=== PATIENT | female | born 1985 | race Two or more races ===

== ENCOUNTER 2019-07-07 09:28 | Inpatient (IN) | payer OTHER ==
[~2019-07-07] VITALS: Ht 160 cm; Wt 94.8 kg
[2019-07-07] MEDS ORDERED: PRENATAL TABLE1 EACH PO (09:43)
== END 2019-07-09 13:04 | disposition home or self-care (01) | DRG 807 ==
LOC: LDR 09:28 → OB/GYN 09:28
PROVIDERS: ADMIT Obstetrics & Gynecology
PROC: 10E0XZZ Delivery of Products of Conception, External Approach (ICD-10-PCS; principal; 2019-07-07)
PROC: 0HQ9XZZ Repair Perineum Skin, External Approach (ICD-10-PCS; 2019-07-07)
PROC: 4A1HXCZ Monitoring of Products of Conception, Cardiac Rate, External Approach (ICD-10-PCS; 2019-07-07)
DX: O70.0 First degree perineal laceration during delivery (principal); Z37.0 Single live birth; Z3A.39 39 weeks gestation of pregnancy